=== PATIENT | female | born 1990 | race Hispanic/Latino ===

== ENCOUNTER → 2019-10-11 | Outpatient (CLI) | payer BC ==
[~2019-10-11] MED LIST: DOCU240C80 PO; IBUP-1493 PO; ISOVUE-M 200 20 ML VIAL IT ONE; TYL3 PO; [UNRECOGNIZED DRUG - OTHER]
== END ==
LOC: RAH 10:03
DX: N97.9 Female infertility, unspecified (principal); Z79.899 Other long term (current) drug therapy; Z82.49 Family history of ischemic heart disease and other diseases of the circulatory system
CPT/HCPCS: 58340; 74740; Q9966 ×2